=== PATIENT | female | born 1940 | race Caucasian/White ===

== ENCOUNTER 2020-11-18 08:25 | Emergency (ER) | payer MEDICARE ==
[2020-11-18 10:08] LABS: EOSINOPHIL 3.6 % (0-7); HCT 35.2 % (37.0-47.0); HGB 11.6 g/dl (12.5-16.0); LYMPHOCYTE 18.3 % (15-48); MCH 26.2 pg (25.0-31.0); MCV 79.5 fL (78.0-100.0); MONOCYTE 12.5 % (0-12); NEUTROPHIL 64.2 % (41-80); NRBC 0; PLT 201 K/uL (150-400); RBC 4.43 M/uL (4.20-5.40); RDW 19.7 % (11.5-14.0); WBC 6.7 K/uL (4.0-10.5)
[2020-11-18 10:24] LABS: BILIRUBIN - TOTAL 0.5 mg/dL (0.2-1.0); BUN/CREAT RATIO (CALC) 13.8 RATIO; CREATININE 0.87 mg/dL (0.51-0.95); GLOBULIN (CALCULATION) 3.1 g/dL; POTASSIUM 4.2 mmol/L (3.5-5.1); TOTAL PROTEIN 6.1 g/dL (6.4-8.2)
[2020-11-18 10:56] LABS: BILIRUBIN NEGATIVE (NEGATIVE); BLOOD NEGATIVE Ery/uL (NEGATIVE); COLOR YELLOW (YELLOW); GLUCOSE (U) NORMAL (NORMAL); LEUKOCYTES 2+ Leu/uL (NEGATIVE); NITRITE POSITIVE (NEGATIVE); PROTEIN NEGATIVE (NEGATIVE); UROBILINOGEN 0.2 mg/dL (0.2-1.0)
[2020-11-18 10:58] LABS: CLARITY HAZY (CLEAR)
[2020-11-18 11:00] LABS: BACTERIA 3+
[2020-11-18] MEDS ORDERED: NORCO 5-325 TA1 EACH PO (12:15)
== END 2020-11-18 12:19 | disposition home or self-care (01) ==
LOC: FER 08:25
PROVIDERS: Emergency Medicine
DX: S32.019A Unspecified fracture of first lumbar vertebra, initial encounter for closed fracture (principal); Z88.5 Allergy status to narcotic agent; W19.XXXA Unspecified fall, initial encounter
CPT/HCPCS: 36415; 72131; 80053; 81001; 85025; J1170; J2405

== ENCOUNTER 2020-11-21 09:16 | Emergency (ER) | payer MEDICARE ==
[~2020-11-21 09:16] MED LIST: NORCO 5-325 TA1 EACH PO
[2020-11-21] MEDS ORDERED: NORCO 5-325 TA1 EACH PO (09:47)
== END 2020-11-21 10:00 | disposition home or self-care (01) ==
LOC: FER 09:16
DX: S32.018A Other fracture of first lumbar vertebra, initial encounter for closed fracture (principal); I10 Essential (primary) hypertension; Z88.5 Allergy status to narcotic agent; Z79.899 Other long term (current) drug therapy; Z79.891 Long term (current) use of opiate analgesic; W19.XXXA Unspecified fall, initial encounter
CPT/HCPCS: 96372; 99283; J1170; J2550

== ENCOUNTER 2021-04-17 10:41 | Emergency (ER) | payer MEDICARE ==
[2021-04-17] MEDS ORDERED: MEDROL 4MG DOSEP4 MG PO (13:35)
[2021-04-17] MEDS ORDERED: PERCOCET 7.5/321 TAB PO (13:35)
== END 2021-04-17 13:45 | disposition home or self-care (01) ==
LOC: FER 10:41
DX: S22.43XA Multiple fractures of ribs, bilateral, initial encounter for closed fracture (principal); S23.3XXA Sprain of ligaments of thoracic spine, initial encounter; S33.5XXA Sprain of ligaments of lumbar spine, initial encounter; Z88.5 Allergy status to narcotic agent; W01.0XXA Fall on same level from slipping, tripping and stumbling without subsequent striking against object, initial encounter
CPT/HCPCS: 71250; 72128; 72131; 96372; J1100; J1885